=== PATIENT | male | born 2000 | race Caucasian/White ===

== ENCOUNTER 2023-10-08 09:47 | Outpatient (CLI) | payer OTHER ==
--- NOTE | 2023-10-08 12:37 | SLEEP CARE CONSULTATION ---
Information from patient questionnaire entered by Maribell Shankar. I have reviewed and concur with the information entered by Maribell Shankar. This document represents the service I personally performed and the decisions made by me, Harpal Avila MD, [facility]. History of Present Illness Service Date and Time: 10/08/2023 0947 Reason for Visit: New patient Chief Complaint: reports: Insomnia, Fatigue, Frequent awakenings at night Date of Onset: 2017 Usual bedtime: MIDNIGHT Time it takes to fall asleep: 1HR Snores at night: Yes Observed to quit breathing while asleep: Yes Sleeps alone due to snoring: No Number of times waking at night: 3 Reasons for waking at night: reports: Gasping for air, Pain, Bathroom, Other (NOISE AND UNKNOWN) Toss, Turn, or Twitch while sleeping: Yes Recalls having dreams: Yes Usually gets out of bed at: 7AM Feels refreshed in the morning: No Morning headache: Yes Sleepy or fatigued during the day: Yes Ever fallen asleep while driving: No Takes day naps: Yes Dreams during day naps: Yes Prior sleep studies: No Additional HPI information: I had the pleasure of seeing Mr. Randhawa today regarding the possibility of him having a sleep disorder. As you know, he is a 22-year-old gentleman who complains of persistent fatigue, insomnia, unrefreshed sleep, and excessive daytime sleepiness for the past 3 4 years since he joined the [employer]. The patient tells me that he normally goes to bed around midnight and it takes him approximately 60 minutes to fall asleep. He takes amitriptylene and another sleeping pill nightly. He has been told that he snores loudly and irregularly at night. He has also been observed to stop breathing in his sleep. He usually sleeps alone. He can recall waking up on the average of 3 times during the night. Most of the time he wakes up because of having to use the bathroom. He has awakened occasionally because of his own snoring, choking, and having to gasp for air. There is a lot of tossing and turning in his sleep. He has somniloquy (sleep talking) and somnambulism (sleep walking). Generally, he can recall having dreams. In the morning he usually gets up out of the bed around 7 a.m. not feeling refreshed nor rested. He usually has a morning headache that goes away after several hours. During the day he complains of feeling sleepy and fatigued. His score on Waldo Sleepiness Scale is 18 out of 24. He never has fallen asleep while driving nor has had any accident due to sleepiness. He usually takes naps during the day. Upon falling asleep during the day he reports having vivid dreams. He reports having impaired concentration during the day. - Parasomnia Symptoms Ever been unable to move upon waking from sleep: Yes Walks in sleep: Yes Talks in sleep: Yes Ever acted out dreams in sleep: No Ever felt weak in the knees when startled or emotional: Yes Bothered by creepy, crawly, restless sensations in legs: Yes Problems with memory or concentration: Yes Subjective Initial Waldo Sleepiness Scale score: 18 (10/08/23) Past Medical History Past Medical History: reports: Claustrophobia, Anxiety, Asthma, Depression, GERD, Other (PTSD) Social History The patient's occupation is a AM. Patient is Single and lives in . Have you smoked in the past 12 months: No Alcohol use: Yes Alcohol amount and frequency: 1-2 A WEEK Caffeine use: Yes Caffeine amount and frequency: 1-2 A WEEK Family History Family history of sleep disordered breathing: No Allergies and Home Medications Known drug allergies: No Drug allergies reviewed: Yes Home medication list reviewed: Yes Review of Systems Weight gain over past 5 years: 40 Cardiovascular: reports: chest pain Respiratory: reports: shortness of breath Gastrointestinal: reports: heartburn, abdominal pain Neurological: reports: headaches Psychiatric: reports: anxiety, depression Ear/Nose/Throat: reports: nasal congestion, sinus problems, dry mouth/throat Endocrine: reports: too hot or cold Musculoskeletal: reports: back pain, muscle pain or cramping Immunologic: reports: allergies to food or environment Physical Exam Vital signs obtained and entered by: MARIBELL Segura MA Blood Pressure: 129/79 (LEFT ARM) Cuff size: regular Heart Rate: 66 O2 Saturation: 99 Height: 5 ft 6.25 in Weight: 167 lb 3.2 oz Body Mass Index: 26.7 BMI Classification: Overweight Neck circumference: 15.5 Mood/affect: normal HEENT: No craniofacial malformation Nostrils: patent to airflow Turbinates: normal Septum: midline Mouth and throat: narrow oropharynx Soft palate: long Hard palate: normal Uvula: normal Uvula visualization: 50% Mallampati Class II Tongue: normal in size Tonsils: small Chin and jaw: normal size and position Neck: normal w/o lymphadenopathy or thyromegaly Heart: regular rate and rhythm Lungs: clear bilaterally Extremities: no edema or clubbing Neurologic: intact Impression and Plan IMPRESSION: 1. Obstructive Sleep Apnea-Hypopnea Syndrome, as suggested by history of loud and irregular snoring, observed cessation of breath while asleep, frequent awakenings during the night, unrefreshed sleep, morning headache, cognitive impairment, and daytime hypersomnolence. Narrow oropharynx is a common predisposing factor for obstructive sleep apnea-hypopnea syndrome. I recommend proceeding to polysomnography to confirm the diagnosis and to assess severity. I informed the patient of what the sleep studies involve and after some discussion, he agreed to proceed. Plan: 1. Schedule polysomnography and return in 1 to 2 weeks after the study to discuss result and initiate therapy. 2. Avoid long distance driving or when feeling sleepy. 3. Avoid alcohol, sedative and muscle relaxant around bedtime. Follow up with Sleep Care in: 1-2 months Plan: in-[facility] Visit Type: In Office Time Spent with Patient (minutes): 15 Provider Statement: I spent 100% of the Face to Face Visit with the patient with greater than 50% spent counseling the patient and coordination of care.
[2023-10-08 12:42] VITALS: BP 129/79; O2SAT 99
== END 2023-10-08 09:48 | disposition home or self-care (01) ==
LOC: SC 09:47
PROVIDERS: ATTEND Internal Medicine Pulmonary Disease
DX: R06.83 Snoring (principal); G47.8 Other sleep disorders; R06.81 Apnea, not elsewhere classified; G47.50 Parasomnia, unspecified; F51.3 Sleepwalking [somnambulism]; G47.00 Insomnia, unspecified; G47.10 Hypersomnia, unspecified; F32.A Depression, unspecified; R41.89 Other symptoms and signs involving cognitive functions and awareness; E66.3 Overweight; Z68.26 Body mass index [BMI] 26.0-26.9, adult
CPT/HCPCS: 99202; 99212

== ENCOUNTER 2023-10-16 16:59 | Emergency (ER) | payer OTHER ==
[2023-10-16 17:29] LABS: RAPID STREP SCREEN Negative (Negative)
--- NOTE | 2023-10-16 18:12 | ED Physician Documentation ---
History of Present Illness - Stated complaint Stated Complaint: THROAT PX/L SIDE FACE NUMB - Chief complaint Chief Complaint: Heent - History obtained from History obtained from: Patient - History of Present Illness Timing: Today Pain level max: 9 Pain level now: 2 - Additonal information Additional information: Patient is a 22-year-old male who presents to the emergency department complaining of right-sided neck pain. He points to the superior portion of the right carotid artery, underneath the mandible. He states it feels like a sharp/stabbing pain. Rates it as a 9 out of 10 at its worst, currently a 2 out of 10. Does not really seem to change with eating, drinking, movement. No swelling. No redness. No dental pain. No fevers. No chills. He states earlier today the left side of his face felt numb but that has resolved. No new medications. No changes in his medication. Denies any drug use. No focal weakness or numbness. No speech difficulty. No swallowing difficulty. No sore throat. He states that it is painful to the touch. Review of Systems Constitutional: denies: Fever, Chills GI: denies: Vomiting, Diarrhea Skin: denies: Rash Musculoskeletal: denies: Neck pain, Back pain Neurologic: denies: Headache PD PAST MEDICAL HISTORY - Past Medical History Past Medical History: Yes Cardiovascular: None Respiratory: Asthma Neuro: None Endocrine/Autoimmune: None GI: None : None HEENT: None Psych: None Musculoskeletal: None Derm: None - Past Surgical History Past Surgical History: No - Present Medications Home Medications: Ambulatory Orders Medication Instructions Recorded Confirmed Amitriptyline [Elavil] 10 mg ORAL DAILY PM 10/08/23 10/16/23 Cholecalciferol (Vitamin D3) 1,250 mcg ORAL DAILY 10/08/23 10/16/23 [Vitamin D3] Fluticasone/Salmeterol [Advair Hfa 1 puffs IH BID 10/08/23 10/16/23 115-21 Mcg Inhaler] Prazosin [Minipress] 1 mg ORAL DAILY 10/08/23 10/16/23 buPROPion [Wellbutrin Xl] 150 mg ORAL DAILY 10/08/23 10/16/23 - Allergies Allergies/Adverse Reactions: Allergies Allergy/AdvReac Type Severity Reaction Status Date / Time No Known Drug Allergies Allergy Verified 10/16/23 17:08 - Social History Does the pt smoke?: No Smoking Status: Never smoker Does the pt drink ETOH?: Yes Does the pt have substance abuse?: No - Immunizations Immunizations are current?: Yes - POLST Patient has POLST: No PD ED PE NORMAL - Vitals Vital signs reviewed: Yes - General General: Alert and oriented X 3, No acute distress - HEENT HEENT: PERRL, Ears normal, Moist mucous membranes, Pharynx benign, Other (mild tenderness over the R upper neck by the mandible/carotid. normal intraoral exam. no glandular swelling. ) - Neck Neck: Supple, no meningeal sign, No bony TTP, No JVD, No bruit - Cardiac Cardiac: RRR, No murmur, Strong equal pulses - Respiratory Respiratory: No respiratory distress, Clear bilaterally - Abdomen Abdomen: Soft, Non tender, Non distended - Derm Derm: Warm and dry - Neuro Neuro: Alert and oriented X 3, jackaroo 2-12 intact, No motor deficit, No sensory deficit, Normal speech Eye Opening: Spontaneous Motor: Obeys Commands Verbal: Oriented GCS Score: 15 - Psych Psych: Normal mood, Normal affect Results - Vitals Vitals: Vital Signs - 24 hr 10/16/23 10/16/23 17:09 20:38 Temperature 36.2 C L Heart Rate 64 80 Respiratory 16 18 Rate Blood Pressure 133/74 H 126/82 H O2 Saturation 98 99 - Labs Labs: Laboratory Tests 10/16/23 10/16/23 10/16/23 17:15 18:42 18:42 WBC 5.1 RBC 4.52 L Hgb 13.7 L Hct 39.8 L MCV 88.1 MCH 30.3 MCHC 34.4 RDW 11.8 L Plt Count 266 MPV 10.0 Neut # (Auto) 2.2 Lymph # (Auto) 2.2 [place] # (Auto) 0.5 Eos # (Auto) 0.1 Baso # (Auto) 0.1 Absolute Nucleated RBC 0.00 Nucleated RBC % 0.0 Sodium 139 Potassium 3.8 Chloride 104 Carbon Dioxide 30 Anion Gap 5.0 L BUN 16 Creatinine 1.0 Estimated GFR (MDRD) 92 Glucose 73 L Calcium 9.9 Group A Strep Rapid Negative - Rads (name of study) CT angio neck Relevant Findings:: Final report received, See rad report PD Medical Decision Making - ED course Complexity details: reviewed results, re-evaluated patient, considered differential, d/w patient ED course: Patient with right-sided neck pain, unclear etiology. Denies any trauma, fevers, illnesses. He points to the right carotid states that it felt sharp and stabbing earlier today, 9 out of 10, currently down to a 2 out of 10. No significant submandibular swelling. Normal phonation. No trismus. CT angiogram of the neck does not show any evidence of carotid dissection. No soft tissue abnormalities. No evidence of abscess or cellulitis. No dental decay visible on exam. Unclear etiology of his symptoms. We will continue supportive care and have him follow-up with his PCP for further care. Patient counseled regarding signs and symptoms for which I believe and urgent re-evaluation would be necessary. Patient with good understanding of and agreement to plan and is comfortable going home at this time This document was made in part using voice recognition software. While efforts are made to proofread this document, sound alike and grammatical errors may occur. Departure - Departure Disposition: 01 Home, Self Care Clinical Impression: Neck pain Condition: Good Instructions: ED Neck Back Pain General Follow-Up: ISABEL KAT, [Primary Care Provider] - Within 1 week Comments: The cause of your pain is unclear tonight. Your white blood cell count is normal, your laboratory testing does not show any acute abnormalities. Your rapid strep test is negative. This could be related to a salivary gland inflammation known as sialoadenitis. Your angiogram of your neck is normal, your carotid arteries are normal and other arteries are normal. Your soft tissues appear normal on CT as well. Would recommend Motrin and Tylenol as needed for pain. Please return if you worsen. Forms: PCP List Discharge Date/Time: 10/16/23 20:38
[2023-10-16 18:52] LABS: BASOPHILS # (AUTO) 0.1 10^3/uL (0.0-0.1); EOSINOPHILS # (AUTO) 0.1 10^3/uL (0.0-0.7); EOSINOPHILS % (AUTO) 2.4 %; HCT - HEMATOCRIT 39.8 % (42.0-52.0); HGB - HEMOGLOBIN 13.7 g/dL (14.0-18.0); LYMPHOCYTES # (AUTO) 2.2 10^3/uL (1.5-3.5); LYMPHOCYTES % (AUTO) 42.9 %; MEAN CORPUSCULAR HEMOGLOBIN 30.3 pg (27.0-31.0); MEAN CORPUSCULAR HGB CONC 34.4 g/dL (32.0-36.0); MEAN CORPUSCULAR VOLUME 88.1 fL (80.0-94.0); MONOCYTES # (AUTO) 0.5 10^3/uL (0.0-1.0); MONOCYTES % (AUTO) 10.1 %; NEUTROPHILS # (AUTO) 2.2 10^3/uL (1.5-6.6); NEUTROPHILS % (AUTO) 43.4 %; PLT - PLATELET COUNT 266 10^3/uL (130-450); RED BLOOD COUNT 4.52 10^6/uL (4.70-6.10); RED CELL DISTRIBUTION WIDTH 11.8 % (12.0-15.0); WHITE BLOOD COUNT 5.1 x10^3/uL (4.8-10.8)
[2023-10-16 19:02] LABS: CALCIUM 9.9 mg/dL (8.5-10.3); POTASSIUM 3.8 mmol/L (3.5-4.5)
[2023-10-16] MEDS ORDERED: iohexoL-300 100 ML VIAL ONE (19:03)
[2023-10-16] MEDS ORDERED: iohexoL-300 100 ML VIAL IVP ONE (19:25)
--- NOTE | 2023-10-16 19:38 | CT Report ---
PROCEDURE: Angio Neck INDICATIONS: R sided neck pain near carotid. tingling face CONTRAST: 80mL Omni 300 TECHNIQUE: After the administration of intravenous contrast, 1.5 mm axial sections acquired from the aortic arch to the [place] of [place]. Coronal 3-D maximum intensity projection (MIP) and/or volume rendering ref ormats were then performed. For radiation dose reduction, the following was used: automated exposur e control, adjustment of mA and/or kV according to patient size. COMPARISON: None. FINDINGS: Image quality: Excellent. Carotid system: The great vessels demonstrate a conventional anatomy as they arise from the aortic a rch. The origins of the common carotid arteries appear patent. The common carotid arteries demonstr ate normal calibers and courses. The bifurcation regions appear normal bilaterally. The internal ca rotid arteries demonstrate normal caliber and course. Posterior circulation: The origins of the vertebral arteries appear patent. The more superior porti ons of the vertebral arteries demonstrate normal course and caliber. They join to form a normal appe aring basilar artery. Soft tissues: Visualized neck soft tissues demonstrate no suspicious abnormalities. The thyroid is normal in size and there are no incidental findings. Bones: No suspicious bony lesions. Visualized cervical spine appears normally aligned. IMPRESSION: There are no areas of hemodynamically significant stenosis, vascular occlusion or aneurysmal dilation within the neck vasculature. The estimate of stenosis included in the report of the imaging study was calculated using the NASCET method CLINICAL RECOMMENDATION STATEMENTS: In patients <35 years with an ITN detected on CT, MRI, or extrathyroidal ultrasound, the Committee re commends further evaluation with dedicated thyroid ultrasound if the nodule is "e1 cm and has no susp icious imaging features, and if the patient has normal life expectancy. In patients "e35 years with an ITN detected on CT, MRI, or extrathyroidal ultrasound, the Committee r ecommends further evaluation with dedicated thyroid ultrasound if the nodule is "e1.5 cm and has no s uspicious imaging features, and if the patient has normal life expectancy. (ACR, 2014) Reviewed by: Claudia Leal MD on 10/16/2023 7:37 PM PST Approved by: Claudia Leal MD on 10/16/2023 7:37 PM PST Station ID: [id number]
[2023-10-16] MEDS ORDERED: CHERRY SYRUP 10 ML UDC PO ONE (20:20)
[2023-10-16] MEDS ORDERED: DEXAMETHASONE 10 MG/ML VIAL PO STA (20:20)
[2023-10-16 20:46] VITALS: BP 126/82; O2SAT 99
== END 2023-10-16 20:38 | disposition home or self-care (01) ==
LOC: ED 16:59
DX: M54.2 Cervicalgia (principal); Z79.899 Other long term (current) drug therapy
CPT/HCPCS: 36415; 70498; 80048; 85025; 87070; 87077; 87430; 99283; 99284; A9270; Q9967

== ENCOUNTER 2023-10-31 19:33 | Outpatient (CLI) | payer OTHER ==
--- NOTE | 2023-11-01 09:26 | XRAY Report ---
PROCEDURE: Sternum 2+V INDICATIONS: RIB PAIN TECHNIQUE: 2 views of the sternum acquired. COMPARISON: None FINDINGS: Bones: No fractures or dislocations. No suspicious bony lesions. Soft tissues: Retrosternal soft tissues appear normal. IMPRESSION: No visible fractures or substernal hematoma. Reviewed by: Sridevi Chase MD on 11/01/2023 9:24 AM [facility] Approved by: Sridevi Chase MD on 11/01/2023 9:24 AM [facility] Station ID: [id number]
--- NOTE | 2023-11-01 09:27 | XRAY Report ---
PROCEDURE: Ribs w/PA Chest 4+V BL INDICATIONS: RIB PAIN TECHNIQUE: 2 views of the ribs were acquired, along with a single view chest. COMPARISON: None. FINDINGS: Surgical changes and devices: None. Bones and chest wall: No fractures or dislocations. No suspicious bony lesions. Overlying soft tis sues appear unremarkable. Lungs and pleura: No pleural effusions or pneumothorax. Lungs appear clear. Mediastinum: Mediastinal contours appear normal. Heart size is normal. IMPRESSION: No displaced rib fracture or pneumothorax. Reviewed by: Sridevi Chase MD on 11/01/2023 9:25 AM [facility] Approved by: Sridevi Chase MD on 11/01/2023 9:25 AM [facility] Station ID: [id number]
== END 2023-10-31 19:34 | disposition home or self-care (01) ==
LOC: DI 19:33
PROVIDERS: ATTEND Family Medicine
DX: R07.81 Pleurodynia (principal); R07.2 Precordial pain

== ENCOUNTER 2023-11-01 19:34 | Outpatient (CLI) | payer OTHER | END 2023-11-01 19:35 | disposition home or self-care (01) | LOC: SC 19:34 | PROVIDERS: ATTEND Internal Medicine Pulmonary Disease | DX: R06.83 Snoring (principal); G47.10 Hypersomnia, unspecified; G47.00 Insomnia, unspecified; G47.50 Parasomnia, unspecified; F51.3 Sleepwalking [somnambulism]; G47.8 Other sleep disorders; R06.81 Apnea, not elsewhere classified; F32.A Depression, unspecified | CPT/HCPCS: 95810 ==